=== PATIENT | male | born 1970 | race Caucasian/White ===

== ENCOUNTER 2020-07-02 11:51 | Emergency (ER) | payer OTHER ==
[2020-07-02 11:59] VITALS: BP 163/86; PULSE 111; RESP 18; TEMP 98.8
[2020-07-02 13:03] LABS: Appearance,Urine Clear (Clear); Bilirubin,Urine Negative (Negative); Blood,Urine Large (Negative); Color,Urine Yellow; Glucose,Urine (UA) Negative (Negative); Ketones,Urine Negative (Negative); Leukocyte Esterase,Urine Negative (Negative); Mucus,Urine Rare /hpf; Nitrite,Urine Negative (Negative); PH, Urine 6.5 (5.0-8.0); Protein,Urine 1+ (Negative); RBC,Urine >182 /hpf (0-5); Specific Gravity,Urine 1.021 (1.001-1.035); Urobilinogen,Urine <2.0 mg/dL (<2.0); WBC,Urine 1 /hpf (0-5)
--- NOTE | 2020-07-02 13:14 | ED ---
General Adult HPI - General Chief complaint: Urogenital Stated complaint: Blood in urine Time Seen by Provider: 07/02/20 12:00 Source: patient Mode of arrival: ambulatory Limitations: no limitations - History of Present Illness Initial comments: 40-year-old male with a past medical history of nephrolithiasis presents to the emergency department for a chief, and racemic this is been ongoing on and off. States the past for 5 days it had resolved however today it worsened again. States that he can see blood when he urinates. He denies any new abdominal pain or pain with urination. Patient denies fevers. Patient went to urgent care and they directed him to come to the emergency room.Patient has no other complaints at this time including shortness of breath, chest pain, abdominal pain, nausea or vomiting, headache, or visual changes. - Related Data Allergies Allergy/AdvReac Type Severity Reaction Status Date / Time No Known Allergies Allergy Verified 07/02/20 11:59 Review of Systems ROS Statement: Those systems with pertinent positive or pertinent negative responses have been documented in the HPI. ROS Other: All systems not noted in ROS Statement are negative. Past Medical History Additional Past Medical History / Comment(s): kidney stones History of Any Multi-Drug Resistant Organisms: None Reported Past Surgical History: No Surgical Hx Reported Smoking Status: Never smoker Past Alcohol Use History: Daily Past Drug Use History: Marijuana General Exam Limitations: no limitations General appearance: alert, in no apparent distress Head exam: Present: atraumatic Eye exam: Present: normal appearance, PERRL, EOMI. Absent: scleral icterus, conjunctival injection, periorbital swelling ENT exam: Present: normal exam, mucous membranes moist Neck exam: Present: normal inspection. Absent: tenderness, meningismus, lymphadenopathy Respiratory exam: Present: normal lung sounds bilaterally. Absent: respiratory distress, wheezes, rales, rhonchi, stridor Cardiovascular Exam: Present: regular rate, normal rhythm, normal heart sounds. Absent: systolic murmur, diastolic murmur, rubs, gallop, clicks GI/Abdominal exam: Present: soft, normal bowel sounds. Absent: distended, tenderness, guarding, rebound, rigid Back exam: Absent: CVA tenderness (R), CVA tenderness (L) Course Vital Signs 07/02/20 11:57 Temperature 98.8 F Pulse Rate 111 H Respiratory 18 Rate Blood Pressure 163/86 O2 Sat by Pulse 99 Oximetry Medical Decision Making - Medical Decision Making Vitals are stable. Patient initially tachycardic likely secondary to anxiety. Patient has had hematuria for 6 weeks now. Urinalysis was obtained, there is no evidence of infection at this time. Urine culture was ordered. X-ray of the abdomen is nonspecific. Patient does not have any pain. No evidence of obstruction clinically. At this time patient can be discharged home in stable condition to follow up with urology as he will likely require additional workup for this complaint. If he has worsening symptoms or is unable to urinate he will return to the emergency room as discussed with him. - Lab Data Lab Results 07/02/20 Range/Units 12:14 Urine Color Yellow Urine Appearance Clear (Clear) Urine pH 6.5 (5.0-8.0) Ur Specific [place] 1.021 (1.001-1.035) Urine Protein 1+ H (Negative) Urine Glucose (UA) Negative (Negative) Urine Ketones Negative (Negative) Urine Blood Large H (Negative) Urine Nitrite Negative (Negative) Urine Bilirubin Negative (Negative) Urine Urobilinogen <2.0 (<2.0) mg/dL Ur Leukocyte Esterase Negative (Negative) Urine RBC >182 H (0-5) /hpf Urine WBC 1 (0-5) /hpf Urine Mucus Rare H (None) /hpf Disposition Clinical Impression: Hematuria Disposition: HOME SELF-CARE Condition: Good Instructions (If sedation given, give patient instructions): Hematuria (ED) Additional Instructions: Please follow-up with urology. This will require additional workup to determine what is causing the bleeding. If you have worsening symptoms or are unable to urinate you need to return to the emergency room. Is patient prescribed a controlled substance at d/c from ED?: No Referrals: Jake Vaughn MD [STAFF PHYSICIAN] - 1-2 days Randall Sidhu MD [STAFF PHYSICIAN] - 1-2 days Time of Disposition: 13:11
--- NOTE | 2020-07-02 13:28 | XR ---
EXAMINATION TYPE: XR KUB DATE OF EXAM: 07/02/2020 COMPARISON: NONE HISTORY: Hematuria TECHNIQUE: One view abdominal series FINDINGS: The osseous structures are intact. The bowel gas pattern is nonspecific. Lung bases are clear. IMPRESSION: 1. Nonspecific abdomen.
== END 2020-07-02 13:45 | disposition home or self-care (01) ==
LOC: EC 11:51
DX: R31.9 Hematuria, unspecified (principal); F12.90 Cannabis use, unspecified, uncomplicated; Z87.442 Personal history of urinary calculi
CPT/HCPCS: 74018; 81001; 87086; 99283

== ENCOUNTER → 2020-07-08 | Outpatient (CLI) | payer OTHER ==
--- NOTE | 2020-07-08 16:06 | CT ---
EXAMINATION TYPE: CT abdomen pelvis wo con DATE OF EXAM: 07/08/2020 HISTORY: flank pain, hematuria CT DLP: 529.7 mGycm. Automated Exposure Control for Dose Reduction was Utilized. TECHNIQUE: CT scan of the abdomen and pelvis is performed without oral or IV contrast. COMPARISON: NONE FINDINGS: Within the limitations of a non-contrast study, the following observations are made. LUNG BASES: No significant abnormality is appreciated. LIVER/GB: No significant abnormality is appreciated. PANCREAS: No significant abnormality is seen. SPLEEN: No significant abnormality is seen. ADRENALS: No significant abnormality is seen. KIDNEYS: There are 2 adjacent calculi lower pole right kidney measuring up to 5 mm in size. No right- sided hydronephrosis. Left kidney shows 5 mm stone posteriorly midpole level axial image 47. There is 10mm calculus at left UPJ coronal image 44 causing moderate left-sided hydronephrosis and mild to moderate left-sided jason nephric fluid and fat stranding. No intraluminal calculi in the bladder. BOWEL: Incidental normal-appearing appendix. No suspicious small or large bowel dilatation. GENITAL ORGANS: No gross abnormality seen. LYMPH NODES: No greater than 1cm abdominal or pelvic lymph nodes are appreciated. OSSEOUS STRUCTURES: Lcru-yf-ttqturdi axial joint space loss in both hips. OTHER: Small umbilical hernia containing fat and tiny mesenteric vessels. IMPRESSION: There is 10 mm calculus at left UPJ causing moderate left-sided hydronephrosis.
== END | disposition home or self-care (01) ==
LOC: RADCTMAIN 15:32
PROVIDERS: ATTEND Urology
DX: N13.2 Hydronephrosis with renal and ureteral calculous obstruction (principal)
CPT/HCPCS: 74176

== ENCOUNTER → 2020-07-18 | Outpatient (CLI) | payer OTHER ==
[2020-07-18 12:42] LABS: Basophils # (A) 0.1 k/uL (0-0.2); Basophils % (A) 1 %; Eosinophils # (A) 0.2 k/uL (0-0.7); Eosinophils % (A) 2 %; HCT 42.7 % (39.0-53.0); Lymphocytes # (A) 1.5 k/uL (1.0-4.8); Lymphocytes % (A) 19 %; MCH 32.2 pg (25.0-35.0); MCHC 32.8 g/dL (31.0-37.0); MCV 98.3 fL (80.0-100.0); Mean Platelet Volume 6.8; Monocytes # (A) 0.5 k/uL (0-1.0); Monocytes % (A) 6 %; Neutrophils # (A) 5.5 k/uL (1.3-7.7); Neutrophils % (A) 71 %; Platelet Count 275 k/uL (150-450); RBC 4.35 m/uL (4.30-5.90); RDW 12.4 % (11.5-15.5); WBC 7.8 k/uL (3.8-10.6)
[2020-07-18 13:16] LABS: Calcium 9.2 mg/dL (8.4-10.2); Potassium 5.2 mmol/L (3.5-5.1)
== END | disposition home or self-care (01) ==
LOC: LABPAT 11:18
PROVIDERS: ATTEND Urology
DX: Z01.812 Encounter for preprocedural laboratory examination (principal); N20.0 Calculus of kidney; N20.1 Calculus of ureter
CPT/HCPCS: 36415; 80048; 85025

== ENCOUNTER 2020-07-25 07:09 | Day surgery (SDC) | payer OTHER ==
[2020-07-23 11:43] VITALS: BMI 26.3
--- NOTE | 2020-07-24 17:06 | P.GSHP ---
History of Present Illness H&P Date: 07/18/20 Chief Complaint: Gross hematuria The patient is a 50-year-old white male with a history of urolithiasis. He recently presented with gross hematuria, associated with left flank pain. CT scan shows a 1 cm left UPJ calculus, as well as a 4-5 mm left renal calculus. Alternative treatment options were reviewed. He has elected to undergo ureteroscopy with laser lithotripsy. - Constitutional Constitutional: Denies chills, Denies fever - Genitourinary (Male) Genitourinary: Reports dysuria, Reports flank pain, Reports hematuria, Reports kidney stones Past Medical History Additional Past Medical History / Comment(s): kidney stones History of Any Multi-Drug Resistant Organisms: None Reported Past Surgical History: No Surgical Hx Reported Smoking Status: Never smoker Past Alcohol Use History: Daily Past Drug Use History: Marijuana - Past Family History Mother Family Medical History: No Reported History Medications and Allergies Home Medications Medication Instructions Recorded Confirmed Type No Known Home Medications 07/23/20 07/23/20 History Allergies Allergy/AdvReac Type Severity Reaction Status Date / Time No Known Allergies Allergy Verified 07/23/20 11:32 Surgical - Exam - General well developed, well nourished, no distress - Neck no masses, trachea midline - Respiratory normal respiratory effort, clear to auscultation - Cardiovascular Rhythm: regular Abnormal Heart Sounds: no systolic murmur, no diastolic murmur, no rub, no S3 Gallop, no S4 Gallop, no click, no other - Abdomen Abdomen: soft, non tender, no guarding, no rigid, no rebound - Genitourinary normal penis with no external lesions, testicles non-tender - Psychiatric oriented to time, oriented to person, oriented to place, speech is normal, memory intact Results - Imaging CT scan - abdomen: report reviewed, image reviewed Assessment and Plan (1) Gross hematuria Status: Acute Code(s): R31.0 - GROSS HEMATURIA SNOMED Code(s): 849579083 (2) Calculus of kidney Status: Acute Code(s): N20.0 - CALCULUS OF KIDNEY SNOMED Code(s): 72066956 Plan: Cystoscopy, left ureteroscopy with Holmium laser lithotripsy, left ureteral stent insertion. The procedure has been reviewed in detail with the patient. He is aware of potential risks, which include anesthesia, bleeding, infection, and ureteral injury. Given the stone burden, a secondary procedure may be required.
[~2020-07-25 07:09] MED LIST: DEXAMETHASONE SOD PHOSPHATE 4 MG/ML 1 ML VIAL IV ONE; HYDROmorphone 0.5 MG/0.5 ML SYRINGE IVP PRN; LACTATED RINGERS 1,000 ML IV SCH; ONDANSETRON 4 MG/2 ML VIAL IVP ONE
[2020-07-25 07:52] VITALS: RESP 16
[2020-07-25] MEDS ORDERED: LIDOCAINE 1% (10MG/ML) FOR IV START SQ ONE (08:03)
[2020-07-25] MEDS ORDERED: PROPOFOL 10 MG/ML 20 ML VIAL IV ONE (09:06)
[2020-07-25] MEDS ORDERED: SUCCINYLCHOLINE CHLORIDE 100 MG/5 ML SYR IV ONE (09:06)
[2020-07-25] MEDS ORDERED: fentaNYL (PF) 50 MCG/ML 2 ML AMP ONE (09:06)
[2020-07-25] MEDS ORDERED: MIDAZOLAM 2 MG/2 ML VIAL ONE (09:06)
[2020-07-25] MEDS ORDERED: LIDOCAINE 1% INJ 10MG/ML (20 ML MDV) ONE (09:06)
[2020-07-25] MEDS ORDERED: IOPAMIDOL-370 50ML BTL IRRIGATION ONE ×2 (09:42)
--- NOTE | 2020-07-25 10:46 | P.OP ---
Date of Procedure: 07/25/20 Preoperative Diagnosis: Left renal calculi Postoperative Diagnosis: Meatal stenosis, left ureteral calculus, left renal calculus Procedure(s) Performed: Meatal dilation, cystoscopy, left retrograde pyelogram, left ureteroscopy with Holmium laser lithotripsy, left ureteral stent insertion Anesthesia: RILEY Surgeon: Gabe Junior Estimated Blood Loss (ml): 0 IV fluids (ml): 500 Pathology: none sent Condition: stable Disposition: PACU Indications for Procedure: The patient is a 50-year-old white male with a history of urolithiasis. He recently presented with gross hematuria, associated with left flank pain. CT scan shows a 1 cm left UPJ calculus, as well as a 4-5 mm left renal calculus. Alternative treatment options were reviewed. He has elected to undergo ureteroscopy with laser lithotripsy. Operative Findings: Tight meatal stenosis. Left distal ureteral calculus, 6-8 mm in size. Left mid pole Robin's plaque. Description of Procedure: The patient was taken to the operating room and placed in the dorsolithotomy position, with legs supported in Pete stirrups. The external genitalia was prepped and draped sterilely. The 30 lens was used to introduce the 21-Albanian Tomlin cystoscopic sheath through the urethra and into the bladder under direct vision. The prostatic urethra showed evidence of mild lateral lobe enlargement. The bladder was examined in its entirety. Both ureteral orifices were normal anatomic location and configuration, and clear urine effluxed from both. The left ureteral orifice was edematous. No tumors or foreign bodies were seen. Using a 10-Albanian cone-tipped catheter, a left retrograde pyelogram was performed. A calculus was seen within the distal ureter. The cystoscope was removed, and the Tomlin semirigid ureteroscope was advanced into the bladder. The left ureteral orifice was cannulated, and the ureteroscope was advanced up to the calculus under direct vision. The 272 holmium laser probe was passed through the ureteroscope, and lithotripsy was performed using a dusting mode. Once the calculus had been fragmented completely, the ureteroscope was advanced up to the proximal ureter. No calculi were seen. .A 0.038 inch Glidewire was passed through the ureteroscope, which was then removed. An 11/13-Albanian ureteral access catheter was passed over the wire, up to the proximal ureter. The flexible ureteroscope was then passed through the ureteral access catheter sheath, up to the left renal pelvis. Each calyx was examined. No calculi were seen, other than a small Robin's plaque within a mid pole calyx. The holmium laser was used to ablate this. The ureteroscope was withdrawn under direct vision. There was no evidence of ureteral trauma. The cystoscope was replaced into the bladder. A 0.038 inch Glidewire was passed through the cystoscope. The left ureteral orifice was cannulated, and the Glidewire was advanced up to the left renal pelvis. A 28 cm, 4.8-Albanian double- J ureteral stent was placed over the wire. Proper stent positioning was verified fluoroscopically and endoscopically. stone. The 272 micron Holmium laser probe was passed through the ureteroscope, and lithotripsy was performed. The bladder was emptied and the cystoscope removed. The string was secured to the patient's penis using a Tegaderm dressing. The patient tolerated the procedure well and was taken to the recovery room in stable condition. [facility] Report: Procedure Acuity: Elective Stone Size and Location: 7 mm, left distal ureter Ureteral Dilation: No Ureteral Access Sheath Used: Yes Stone Sent for Analysis: No All Stones/Fragments Were Removed with a Basket: No Complications: No Preoperative Antibiotics Given: Yes Stent Placed: Yes If Stent Placed, Was String Left Attached: Yes If Stent Placed, When is it to be Removed: 1 week Discharge Medications: None
[2020-07-25 10:48] VITALS: TEMP 97.7
--- NOTE | 2020-07-25 11:35 | FL ---
EXAMINATION TYPE: FL urography retrograde DATE OF EXAM: 07/25/2020 CLINICAL HISTORY: Left ureter calculus. TECHNIQUE: Fluoroscopy. COMPARISON: CT abdomen and pelvis July 08, 2020. FINDINGS: Fluoroscopic guidance was provided during left ureter calculus treatment procedure perform ed by Dr. Junior. A total of 25 seconds of fluoroscopic time was utilized during the procedure and 2 spot images was acquired. Images acquired show access the UVJ with contrast injection and placement of a ureter stent. IMPRESSION: As Above.
[2020-07-25] MEDS ORDERED: LABETALOL 5 MG/ML VIAL MDV IVP ONE (11:49)
[2020-07-25 12:12] VITALS: BP 170/97; PULSE 70
== END 2020-07-25 12:26 | disposition home or self-care (01) ==
LOC: OR 07:09
PROVIDERS: ATTEND Urology
DX: N35.911 Unspecified urethral stricture, male, meatal (principal); N20.2 Calculus of kidney with calculus of ureter; R31.0 Gross hematuria; Z87.442 Personal history of urinary calculi; F41.9 Anxiety disorder, unspecified
CPT/HCPCS: 84132; 74420; 52356; C2625; C1758; C1769; J2250; J1100; J0690; J2405; J2001; J3010; J0330; J2704; Q9967

== ENCOUNTER → 2020-09-19 | Outpatient (CLI) | payer OTHER ==
--- NOTE | 2020-09-19 10:06 | US ---
EXAMINATION TYPE: US kidneys/renal and bladder DATE OF EXAM: 09/19/2020 COMPARISON: CT 07/08/2020 CLINICAL HISTORY: 50-year-old male N20.1 LT URETERAL CALCULUS. TECHNIQUE: Multiple sonographic images of the kidneys and bladder are obtained. FINDINGS: EXAM MEASUREMENTS: Right Kidney: 10.8 x 5.8 x 4.6 cm Left Kidney: 11.9 x 7.6 x 4.4 cm No hydronephrosis on either side. Bladder: Debris visualized. Bilateral Jets seen: no, only the left is seen. IMPRESSION: 1. The previous left-sided hydronephrosis has resolved. 2. Floating debris in the bladder. This could represent some hemorrhagic material or cystitis. Corre late clinically and with urinalysis.
== END | disposition home or self-care (01) ==
LOC: RADUSWWP 09:12
PROVIDERS: ATTEND Urology
DX: N20.1 Calculus of ureter (principal)
CPT/HCPCS: 76770

== ENCOUNTER 2023-05-27 10:10 | Emergency (ER) | payer OTHER ==
--- NOTE | 2023-05-27 11:18 | ED ---
Male Urogenital HPI - General Chief complaint: Urogenital Stated complaint: Urogenital Time Seen by Provider: 05/27/23 10:27 Source: patient, RN notes reviewed Mode of arrival: ambulatory Limitations: no limitations - History of Present Illness Initial comments: This is a 53-year-old male who presents to the emergency department for difficulty with urination. Patient states that he has problems with recurrent kidney stones and also has problems with a weak urine stream. He has noticed that his stream seemed slower and slower over the last couple of weeks. This morning, when he tried to urinate he only got out a few drops. He is starting to have some discomfort in that region. States that he usually has a kidney stone in the tip of the urethra that he is able to remove, but has not found any at this time. He wonders if one may be stuck but is also concerned that this urethra may be starting to close. - Related Data Previous Rx's Medication Instructions Recorded Sulfamethox-Tmp 800-160Mg [Bactrim 1 tab PO Q12HR 7 Days #14 tab 05/27/23 DS 800-160 mg] Allergies Allergy/AdvReac Type Severity Reaction Status Date / Time No Known Allergies Allergy Verified 05/27/23 15:49 Review of Systems ROS Statement: Those systems with pertinent positive or pertinent negative responses have been documented in the HPI. ROS Other: All systems not noted in ROS Statement are negative. Past Medical History Additional Past Medical History / Comment(s): kidney stones History of Any Multi-Drug Resistant Organisms: None Reported Past Surgical History: No Surgical Hx Reported Past Psychological History: No Psychological Hx Reported Smoking Status: Never smoker Past Alcohol Use History: Daily Past Drug Use History: Marijuana General Exam Limitations: no limitations General appearance: alert, in no apparent distress Head exam: Present: atraumatic, normocephalic, normal inspection Respiratory exam: Present: normal lung sounds bilaterally. Absent: respiratory distress, wheezes, rales, rhonchi, stridor Cardiovascular Exam: Present: regular rate, normal rhythm, normal heart sounds. Absent: systolic murmur, diastolic murmur, rubs, gallop, clicks GI/Abdominal exam: Present: soft, normal bowel sounds. Absent: distended, tenderness, guarding, rebound, rigid Neurological exam: Present: alert, oriented X3, CN II-XII intact Psychiatric exam: Present: normal affect, normal mood Skin exam: Present: warm, dry, intact, normal color. Absent: rash Course Vital Signs 05/27/23 05/27/23 05/27/23 10:23 11:43 12:59 Temperature 98.2 F 98 F Pulse Rate 107 H 88 90 Respiratory 20 18 18 Rate Blood Pressure 162/108 159/95 163/95 O2 Sat by Pulse 98 100 100 Oximetry 05/27/23 05/27/23 14:50 15:54 Temperature 98 F 98.8 F Pulse Rate 88 77 Respiratory 18 18 Rate Blood Pressure 159/92 157/94 O2 Sat by Pulse 99 99 Oximetry Medical Decision Making - Medical Decision Making This is a 53 year old male who presents to the emergency department for difficulty with urination. Was pt. sent in by a medical professional or institution? @ -No Did you speak to anyone other than the patient for history? @ -No Did you review nursing and triage notes? @ -Yes, and I agree, it is accurate with regards to the patient's symptoms. Were old charts reviewed? @ -No Differential Diagnosis? @ -Differential Urinary Hesitancy: Obstruction, UTI, neurological issue, this is not meant to be an all-inclusive list. EKG interpreted by me (3pts min.)? @ -Not obtained X-rays interpreted by me (1pt min.)? @ -Not obtained CT interpreted by me (1pt min.)? @ -CT scan of the abdomen and pelvis obtained. My interpretation identifies no evidence of a ureteral calculus. U/S interpreted by me (1pt. min.)? @ -Not obtained What testing was considered but not performed? (CT, X-rays, U/S, labs)? Why? @ -CBC, BMP, and US of the bladder for further evaluation of urinary difficulties, however patient declined due to lack of health insurance. What meds were considered but not given? Why? @ -None Did you discuss the management of the patient with other professionals? @ -Yes, Dr. Sidhu, who came to the emergency department to evaluate the patient. He was able to insert a Monroy Catheter. He requested the patient follow-up with him in the office, however patient was hesitant to do so due to lack of health insurance. He subsequently taught the patient how to remove the catheter himself and requested that he be started on antibiotics. Did you reconcile home meds? @ -No Was smoking cessation discussed for >3mins.? @ -No Was critical care preformed (if so, how long)? @ -No Were there social determinants of health that impacted care today? How? (Homelessness, low income, unemployed, alcoholism, drug addiction, transportation, low edu. Level, literacy, decrease access to med. care, halfway, rehab)? @ -No Was there de-escalation of care discussed even if they declined? (Discuss DNR or withdrawal of care, Hospice)? @ -No What co-morbidities impacted this encounter? (DM, HTN, Smoking, COPD, CAD, Cancer, CVA, Hep., AIDS, mental health diagnosis, sleep apnea, morbid obesity)? @ -None Was patient admitted / discharged? @ -Discharged. On arrival bladder scan was performed demonstrating an estimated PVR of [address] scan of the abdomen and pelvis obtained due to patient's history of ureteral calculi becoming stuck in the urethra. This demonstrated no acute process. We had initially discussed a bladder ultrasound and blood work to evaluate kidney function and any other potential irregularities that could be contributing to the symptoms. Patient is concerned about additional testing due to not having health insurance. He requested to proceed with a Monroy catheter if possible and he would plan to follow-up with urology. Several nursing staff members evaluated the patient and were concerned about a potential uretheral stricture and did not believe that they would be able to insert a Monroy catheter. Case was discussed with Dr. Sidhu, urology. He came to the emergency department to evaluate the patient. He was able to insert a Monroy catheter. He had requested the patient follow-up with him in the office, however the patient did not want to due to lack of health insurance. He subsequently taught the patient how to remove the catheter himself in the next couple of days and requested he be started on antibiotics. Prescription for Bactrim provided with dosing instructions reviewed. Patient discharged home in stable condition with Monroy catheter in place. Undiagnosed new problem with uncertain prognosis? @ -None Drug Therapy requiring intensive monitoring for toxicity (Heparin, Nitro, Insulin, Cardizem)? @ -None Were any procedures done? @ -None Diagnosis/symptom? @ -Urinary retention Acute, or Chronic, or Acute on Chronic? @ -Acute Uncomplicated (without systemic symptoms) or Complicated (systemic symptoms)? @ -Uncomplicated Side effects of treatment? @ -None Exacerbation, Progression, or Severe Exacerbation] @ -Not applicable Poses a threat to life or bodily function? @ -No Return precautions reviewed in depth, the patient is instructed to return to the emergency department with any new, worsening, or concerning symptoms. Patient verbalized understanding. This case was discussed in detail with the attending ED physician, Dr. Moon. Presentation, findings, and treatment plan discussed in detail as well. - Radiology Data Radiology results: report reviewed, image reviewed Disposition Clinical Impression: Urinary retention Disposition: HOME SELF-CARE Instructions (If sedation given, give patient instructions): Urinary Retention in Men (ED) Additional Instructions: Return to the emergency department with any new, worsening, or concerning symptoms. Take the antibiotic as prescribed for 7 days. Follow up with your primary care provider in 1-2 days. Prescriptions: Sulfamethox-Tmp 800-160Mg [Bactrim DS 800-160 mg] 1 tab PO Q12HR 7 Days #14 tab Is patient prescribed a controlled substance at d/c from ED?: No Referrals: Randall Sidhu MD [STAFF PHYSICIAN] - 1-2 days None,Stated [Primary Care Provider] - 1-2 days Time of Disposition: 17:17
--- NOTE | 2023-05-27 11:31 | CT ---
EXAMINATION TYPE: CT abdomen pelvis wo con DATE OF EXAM: 05/27/2023 COMPARISON: 07/08/2020 INDICATION: difficult urination, history of stones DLP: 644 mGycm, Automated exposure control for dose reduction was used. CONTRAST: 0 mL of Isovue 300. Study performed without Oral Contrast TECHNIQUE: Axial images were obtained from above the diaphragm to the pubic rami in the axial plane a t 5 mm thick sections. Reconstructed images are reviewed on the computer in the coronal plane. FINDINGS: Limited CT sections are obtained the lung bases. The lung bases are clear. CT ABDOMEN: Liver: There is marked fatty infiltration to the liver. Hepatomegaly is present measuring 20 cm in cr aniocaudal dimension. Normal less than 15.5 cm. Spleen: Normal Pancreas: Normal Adrenal glands: The adrenal glands are normal. Gallbladder: Normal Kidneys: No masses are evident. No hydronephrosis is present. No cysts are present. There is a 0.4 cm nonobstructing renal stone inferior pole left kidney. Aorta: Normal Inferior vena cava: Normal. CT PELVIS: Loops of bowel within the abdomen and pelvis are normal. The study is without oral contrast limit ing bowel evaluation. Appendix: Normal as visualized. Urinary bladder: Normal. Genitourinary structures: Prostate is prominent Osseous structures: No suspicious lytic or sclerotic lesions. IMPRESSION: 1. No acute abnormality CT abdomen pelvis. 2. Marked fatty infiltration through the enlarged liver. 3. Punctate nonobstructing renal stone inferior pole right kidney
[2023-05-27 12:21] VITALS: RESP 18
[2023-05-27 16:20] VITALS: BP 157/94; PULSE 77; TEMP 98.8
[2023-05-27] MEDS ORDERED: SULFAMETH-TMP DS STARTER PACK 2 TAB BTL PO STA (17:15)
--- NOTE | 2023-05-27 17:23 | P.GSCN ---
History of Present Illness Consult date: 05/27/23 Reason for Consult: Urinary retention History of present illness: This is a 53-year-old male that presented to the ER with difficulty voiding. He does have a known history of meatal stenosis and has underwent previous dilation in the past. He indicated he has been having a weak stream for the past few years, and indicate he has to strain to void. But today he has not been able to void. Denies any gross hematuria or dysuria. He previously followed up with Dr. De La Paz last time was in 2020. History of recurrent kidney stones requiring ureteroscopy with laser lithotripsy. Of note on at time of ureteroscopy 2020 he did have evidence of meatal stenosis. In the ER he underwent a CT abdomen pelvis that showed no acute process Review of Systems - Constitutional Denies fever, Denies weight loss - EENT Ears, nose, mouth and throat: Denies dysphagia - Cardiovascular Denies chest pain, Denies shortness of breath - Respiratory Denies cough, Denies 7 - Gastrointestinal Reports as per HPI - Genitourinary Denies dysuria, Denies hematuria - Integumentary Denies rash, Denies unusual bruising - Neurological Denies headaches, Denies syncope Past Medical History Additional Past Medical History / Comment(s): kidney stones History of Any Multi-Drug Resistant Organisms: None Reported Past Surgical History: No Surgical Hx Reported Past Psychological History: No Psychological Hx Reported Smoking Status: Never smoker Past Alcohol Use History: Daily Past Drug Use History: Marijuana Medications and Allergies Home Medications Medication Instructions Recorded Confirmed Type Sulfamethox-Tmp 800-160Mg [Bactrim 1 tab PO Q12HR 7 Days #14 tab 05/27/23 Rx DS 800-160 mg] Allergies Allergy/AdvReac Type Severity Reaction Status Date / Time No Known Allergies Allergy Verified 05/27/23 15:49 Surgical - Exam Vital Signs Temp Pulse Resp BP Pulse Ox 98.2 F 107 H 20 162/108 98 05/27/23 10:23 05/27/23 10:23 05/27/23 10:23 05/27/23 10:05/27/23 10:23 - General no distress, no pain - Eyes normal ocular movement, no pale - ENT normal nares, normal mucosa - Respiratory normal expansion, normal respiratory effort - Abdomen Abdomen: soft, non tender - Genitourinary Significant meatal stenosis, normal phallus bilateral palpable testicles Assessment and Plan Assessment: 53-year-old male with 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 Underwent dilation using [place] sound subsequently a 16 [place] was placed with return of clear urine -Okay for discharge from urology standpoint, advised to remove his Monroy catheter on May 30
--- NOTE | 2023-05-27 17:24 | P.OP ---
Date of Procedure: 05/27/23 Preoperative Diagnosis: Urethral stricture Postoperative Diagnosis: Same Procedure(s) Performed: Urethral dilation, Monroy catheter placement Description of Procedure: Patient penis was prepped, next using the [place] sounds the urethral meatus was dilated starting at 10 [place] and going all the way up to 20 [place]. Next a 16 [place] Monroy catheter was placed with return of clear urine. The balloon was inflated to 10 cc. Patient tolerated procedure well
== END 2023-05-27 17:33 | disposition home or self-care (01) ==
LOC: EC 10:10
DX: R33.9 Retention of urine, unspecified (principal); N20.0 Calculus of kidney; F12.90 Cannabis use, unspecified, uncomplicated
CPT/HCPCS: 51702; 74176; 99284